=== PATIENT | male | born 1985 | race Caucasian/White ===

== ENCOUNTER 2021-09-26 17:19 | Emergency (ER) | payer OTHER ==
[2021-09-26 17:41] VITALS: BP 145/87; PULSE 75; TEMP 98.6; BMI 28.0
[2021-09-26] MEDS ORDERED: LIDOCAINE 5% TOPICAL PATCH TP ONE (18:45)
[2021-09-26] MEDS ORDERED: KETOROLAC TROMETHAMINE 15 MG/ML VIAL IM ONE (18:45)
[2021-09-26] MEDS ORDERED: diazePAM 5 MG TABLET PO ONE (21:02)
[2021-09-26] MEDS ORDERED: diazePAM 5 MG TABLET ONE (21:46)
[2021-09-26] MEDS ORDERED: LIDOCAINE PATCH REMOVAL MC SCH (22:00)
== END 2021-09-26 22:57 | disposition home or self-care (01) ==
LOC: JERFT 17:19
PROC: 3E0233Z Introduction of Anti-inflammatory into Muscle, Percutaneous Approach (ICD-10-PCS; principal; 2021-09-26)
DX: M54.2 Cervicalgia (principal); M62.838 Other muscle spasm
CPT/HCPCS: 72040-TC; 72070-TC-FY; 99284-25